=== PATIENT | male | born 1950 | race Hispanic/Latino ===

== ENCOUNTER → 2021-02-13 | Outpatient (CLI) | payer OTHER | END | disposition home or self-care (01) | LOC: RAH 13:09 | PROVIDERS: ATTEND Podiatrist | DX: S93.124A Dislocation of metatarsophalangeal joint of right lesser toe(s), initial encounter (principal); M20.41 Other hammer toe(s) (acquired), right foot; X58.XXXA Exposure to other specified factors, initial encounter; Y93.89 Activity, other specified; Y92.89 Other specified places as the place of occurrence of the external cause; Y99.8 Other external cause status | CPT/HCPCS: 73630 ==

== ENCOUNTER → 2024-04-23 | Outpatient (CLI) | payer OTHER ==
[~2024-04-23] MED LIST: IOHEXOL 350 MG/ML 100ML INFUS..BTL IV ONE; PROM25I PO
== END | disposition home or self-care (01) ==
LOC: RAH 08:42
PROVIDERS: ATTEND Family Medicine
DX: K76.89 Other specified diseases of liver (principal); N28.1 Cyst of kidney, acquired; N40.0 Benign prostatic hyperplasia without lower urinary tract symptoms; E83.52 Hypercalcemia; R94.5 Abnormal results of liver function studies; N21.0 Calculus in bladder
CPT/HCPCS: 74178; Q9967